=== PATIENT | female | born 1975 | race Caucasian/White ===

== ENCOUNTER 2021-11-17 10:47 | Emergency (ER) | payer OTHER ==
[2021-11-17 12:15] LABS: CORONAVIRUS 2019 SARS-COV-2 NEGATIVE (NEGATIVE); INFLUENZA A NAA NEGATIVE (NEGATIVE)
[2021-11-17 12:26] LABS: BASOPHIL 0.8 % (0-2); EOSINOPHIL 2.2 % (0-5); HCT 46.4 % (37.0-47.0); HGB 15.1 g/dl (12.5-16.0); LYMPHOCYTE 10.4 % (15-48); MCH 29.2 pg (25.0-31.0); MCHC 32.5 g/dL (32.0-36.0); MCV 89.6 fL (78.0-100.0); MONOCYTE 6.9 % (0-12); MPV 9.1 fL (6.0-9.5); NEUTROPHIL 79.3 % (41-80); NRBC 0; PLT 407 K/uL (150-400); RBC 5.18 M/uL (4.20-5.40); RDW 14.5 % (11.5-14.0); WBC 14.8 K/uL (4.0-10.5)
[2021-11-17 12:38] LABS: INR 1.08 (0.9-1.2); PROTHROMBIN TIME 13.4 SECONDS (11.8-13.4); PTT 30.8 SECONDS (24.4-34.7)
[2021-11-17 12:50] LABS: ALBUMIN 3.5 g/dL (3.4-5.0); ALKALINE PHOSHATASE 372 U/L (46-116); ALT 44 U/L (14-59); AST 21 U/L (15-37); BILIRUBIN - TOTAL 0.6 mg/dL (0.2-1.0); BUN 18 mg/dL (7-18); BUN/CREAT RATIO (CALC) 18.9 RATIO; CHLORIDE 102 mmol/L (98-107); CO2 (BICARBONATE) 28 mmol/L (21-32); CREATININE 0.95 mg/dL (0.51-0.95); GLOBULIN (CALCULATION) 4.2 g/dL; GLUCOSE 91 mg/dL (74-106); TOTAL PROTEIN 7.7 g/dL (6.4-8.2)
[2021-11-17 12:53] LABS: LACTIC ACID 0.4 mmol/L (0.4-1.9)
[2021-11-17] MEDS ORDERED: PROMETHAZINE V473 M2 PO (17:44)
[2021-11-17] MEDS ORDERED: ZPAK PO (17:44)
== END 2021-11-17 18:00 | disposition home or self-care (01) ==
LOC: FER 10:47
PROVIDERS: Emergency Medicine
DX: J06.9 Acute upper respiratory infection, unspecified (principal); B34.9 Viral infection, unspecified; Z86.16 Personal history of COVID-19; Z88.5 Allergy status to narcotic agent; Z20.822 Contact with and (suspected) exposure to COVID-19
CPT/HCPCS: 36415; 36600; 71046; 71250; 80053; 82803; 83605; 83880; 84145; 84484; 85025; 85610; 85730; 87040; 93005; U0002